=== PATIENT | male | born 1950 | race Caucasian/White ===

== ENCOUNTER → 2018-07-31 | Outpatient (CLI) | payer MEDICARE, MEDICAID ==
[~2018-07-31] MED LIST: IBUP-2185 PO
--- NOTE | 2018-07-31 11:37 | Diagnostic Imaging Report ---
INDICATION: Abdominal aortic aneurysm screening. TECHNIQUE: Grayscale sonographic images of the abdominal aorta. CORRELATION STUDY: None. FINDINGS: This is a fairly compromised and limited abdominal ultrasound evaluation with nonvisualization of the proximal and mid aspect of the abdominal aorta. Abdominal Aorta Proximal: Not visualized. Mid: Not visualized. Distal: 1.6 x 1.7 cm. Common Iliac Arteries Right MEGHAN: Not visualized. Left MEGHAN: Not visualized. IMPRESSION: 1. Overall, this is essentially a nondiagnostic abdominal ultrasound evaluation. Large portions of the abdominal aorta and iliac arteries cannot be visualized on this study. Dictated by: Dictated on workstation # [id number]
== END ==
LOC: RAD 06:51
PROVIDERS: ATTEND Family Medicine
DX: Z13.6 Encounter for screening for cardiovascular disorders (principal); I71.4 Abdominal aortic aneurysm, without rupture
CPT/HCPCS: 76775

== ENCOUNTER 2020-10-28 05:32 | Outpatient (RCR) | payer MEDICARE ==
[~2020-10-28] VITALS: Ht 168 cm; Wt 68.0 kg
[~2020-10-28 05:32] MED LIST changes: +DORZ10DR22 OP; +[UNRECOGNIZED DRUG - REMARK]
== END 2020-10-28 13:37 | disposition home or self-care (01) ==
LOC: PREOP 05:32
PROVIDERS: ATTEND Surgery
DX: Z01.812 Encounter for preprocedural laboratory examination (principal); Z12.11 Encounter for screening for malignant neoplasm of colon; Z86.010 Personal history of colon polyps; Z20.822 Contact with and (suspected) exposure to COVID-19
CPT/HCPCS: 87635

== ENCOUNTER 2020-11-01 08:31 | Day surgery (SDC) | payer MEDICARE ==
[2020-11-01] VITALS (10 sets, daily range): BP systolic 87–128; BP diastolic 51–86
[~2020-11-01] VITALS: Ht 167 cm; Wt 68.0 kg
[2020-11-01] MEDS ORDERED: LACTATED RINGERS 1,000 ML IV ONE (08:33)
[2020-11-01] MEDS ORDERED: LACTATED RINGERS 1,000 ML IV STA (08:39)
--- NOTE | 2020-11-01 09:29 | Progress Note-Pre Operative ---
Pre-Operative Progress Note H&P Reviewed The H&P was reviewed, patient examined and no changes noted. Date Seen by Provider: Nov 01, 2020 Time Seen by Provider: : Date H&P Reviewed: Nov 01, 2020 Time H&P Reviewed: : Pre-Operative Diagnosis: hx polyps KARTHIKEYAN EMERY DO Nov 01, 2020 09:28
[2020-11-01] MEDS ORDERED: MIDAZOLAM 2 MG/2 ML (VERSED) VIAL ONE (09:47)
[2020-11-01] MEDS ORDERED: PROPOFOL INJECTION 50 ML IV ONE (09:47)
--- NOTE | 2020-11-01 10:35 | Progress Note-Post Operative ---
Post-Operative Progess Note Surgeon (s)/Toeing Stockings (s) Surgeon KARTHIKEYAN EMERY DO Toeing Stockings: na Pre-Operative Diagnosis hx polyps Post-Operative Diagnosis normal colon Procedure & Operative Findings Date of Procedure 11/01/20 Procedure Performed/Findings colonoscopy Anesthesia Type per unit secy Estimated Blood Loss Estimated blood loss (mL): min Specimens/Packing Specimens Removed na KARTHIKEYAN EMERY DO Nov 01, 2020 10:35
--- NOTE | 2020-11-01 10:36 | Discharge Inst-Simple/Standard ---
Discharge Inst-Standard Patient Instructions/Follow Up Plan of Care/Instructions/FU: 5 years Stephanie any issues before then be seen at that time. Activity as Tolerated: Yes Discharge Diet: Regular Diet KARTHIKEYAN EMERY DO Nov 01, 2020 10:36
--- NOTE | 2020-11-01 13:28 | Anesthesia-General Post-Op ---
MAC Patient Condition Mental Status/LOC: Same as Preop Cardiovascular: Satisfactory Nausea/Vomiting: Absent Respiratory: Satisfactory Pain: Controlled Complications: Absent Post Op Complications Complications None Follow Up Care/Instructions Patient Instructions None needed. Anesthesiology Discharge Order Discharge Order Patient is doing well, no complaints, stable vital signs, no apparent adverse anesthesia problems. No complications reported per nursing. MARINO BROWNLEE CRNA Nov 01, 2020 13:28
--- NOTE | 2020-11-01 15:16 | OPERATIVE REPORT ---
DATE OF SERVICE: 11/01/2020 PREOPERATIVE DIAGNOSIS: History of polyps. POSTOPERATIVE DIAGNOSIS: Normal colon. PROCEDURE PERFORMED: Colonoscopy. SURGEON: Karthikeyan Brown DO. ANESTHESIA: Per MANAGER OF CLINICAL. ESTIMATED BLOOD LOSS: None. COMPLICATIONS: None. INDICATIONS FOR PROCEDURE: The patient is a 70-year-old male with history of colon polyps. He understands the risks and benefits of the procedure and wished to proceed with the procedure. Consent was signed in the chart. DESCRIPTION OF PROCEDURE: The patient was taken to the endoscopy suite and placed in a left lateral recumbent position. Timeout was performed. Digital rectal exam was performed. There were no palpable polyps, masses or ulcerations. Scope was inserted in the rectum, advanced all the way to cecum with minimal difficulty. Prep was adequate with irrigation and suction. Scope was then slowly retracted back. There were no polyps, masses or ulcerations within the cecum, ascending, transverse, descending and sigmoid colon. Once in the rectum, scope was retroflexed noting no other pathology. Scope was returned to its normal position, slowly withdrawn until completely removed. The patient tolerated the procedure well without any complications and taken to the recovery room in a stable condition. RECOMMENDATIONS: The patient will need repeat colonoscopy in five years. Any issues before that will be seen at that time. Job ID: [id number] DocumentID: [id number] Dictated Date: 11/01/2020 10:37:55 Electrical Engineering Manager Date: 11/01/2020 15:15:38 Dictated By: KARTHIKEYAN BROWN DO
== END 2020-11-01 11:30 | disposition home or self-care (01) ==
LOC: ENDO 08:31
PROVIDERS: ATTEND Surgery
DX: Z86.010 Personal history of colon polyps (principal); J44.9 Chronic obstructive pulmonary disease, unspecified

== ENCOUNTER → 2022-11-23 | Outpatient (CLI) | payer MEDICARE | LOC: CARD 07:39 | DX: R00.2 Palpitations (principal) | CPT/HCPCS: 93225; 93226 ==

== ENCOUNTER → 2023-02-26 | Outpatient (CLI) | payer MEDICARE ==
[~2023-02-26] MED LIST changes: -DORZ10DR22 OP; +DORZ10DR40 OP
== END ==
LOC: CARD 12:00
PROVIDERS: ATTEND Internal Medicine Cardiovascular Disease
DX: I10 Essential (primary) hypertension (principal); I25.10 Atherosclerotic heart disease of native coronary artery without angina pectoris
CPT/HCPCS: 93306

== ENCOUNTER → 2023-05-08 | Outpatient (CLI) | payer MEDICARE ==
[2023-05-08 15:00] VITALS: BP 132/74
--- NOTE | 2023-05-08 17:06 | Cardiology Stress Test Report ---
Stress Test Report Date of Procedure/Referring: Date of Procedure: May 08, 2023 PCP Lina Wahl MD Admitting Physician Admitting Physician: Attending Physician: Ihsan Cruz MD Indications: CP Baseline Heart Rate: 56 Baseline Blood Pressure: Blood Pressure Systolic: 132 Blood Pressure Diastolic: 74 Baseline EKG: Baseline EKG: NSR Summary/Conclusion: Summary: In summary, the patient started exercising with a baseline heart rate, blood pressure and EKG mentioned above Patient was able to exercise for a total of 6 minutes on Orion protocol, METs 7.3 Maximum heart rate 125 Maximum blood pressure 182/93 Stress EKG, Minimal nondiagnostic changes Recovery EKG , Return to baseline Conclusion: Fair exercise tolerance for 6 minutes on standard Orion protocol, 7.3 METS achieving 84% of maximal expected heart rate Appropriate heart rate response to exercise with hypertensive response to exercise with peak blood pressure 182/93 return to baseline during recovery Minimal nondiagnostic EKG changes with exercise return to baseline during recovery Copy Copies To 1: LINA WAHL MD Copies To 2: [facility] [place] MD May 08, 2023 17:06
== END ==
LOC: CARD 14:24
PROVIDERS: ATTEND Internal Medicine Cardiovascular Disease
DX: I10 Essential (primary) hypertension (principal); I25.10 Atherosclerotic heart disease of native coronary artery without angina pectoris
CPT/HCPCS: 93017